=== PATIENT | male | born 1985 | race Caucasian/White ===

== ENCOUNTER 2021-05-17 22:21 | Emergency (ER) | payer MEDICAID ==
[~2021-05-17] VITALS: Ht 175.3 cm; Wt 56.7 kg
[2021-05-17 22:51] LABS: BASOPHILS # (AUTO) 0.1 10^3/uL (0.0-0.1); BASOPHILS % (AUTO) 1 % (0-10); EOSINOPHILS # (AUTO) 0.3 10^3/uL (0.0-0.3); EOSINOPHILS % (AUTO) 5 % (0-10); HEMATOCRIT 51 % (40-54); HEMOGLOBIN 17.1 g/dL (13.3-17.7); LYMPHOCYTES # (AUTO) 3.4 10^3/uL (1.0-4.0); LYMPHOCYTES % (AUTO) 48 % (12-44); MEAN CORPUSCULAR HEMOGLOBIN 32 pg (25-34); MEAN CORPUSCULAR HGB CONC 34 g/dL (32-36); MEAN CORPUSCULAR VOLUME 97 fL (80-99); MEAN PLATELET VOLUME 9.5 fL (9.0-12.2); MONOCYTES # (AUTO) 0.4 10^3/uL (0.0-1.0); MONOCYTES % (AUTO) 6 % (0-12); NEUTROPHILS # (AUTO) 2.8 10^3/uL (1.8-7.8); NEUTROPHILS % (AUTO) 40 % (42-75); PLATELET COUNT 284 10^3/uL (130-400)
[2021-05-17] MEDS ORDERED: FAMOTIDINE 20MG/2ML IV (PEPCID) IVP ONE (23:15)
[2021-05-17] MEDS ORDERED: PANTOPRAZOLE 40 MG (PROTONIX) VIAL IV ONE (23:15)
[2021-05-17 23:29] LABS: ALANINE AMINOTRANSFERASE 15 U/L (0-55); ALBUMIN 4.6 GM/DL (3.2-4.5); ALKALINE PHOSPHATASE 66 U/L (40-136); BILIRUBIN,TOTAL 0.3 MG/DL (0.1-1.0); BUN/CREATININE RATIO 6; CALCIUM 9.3 MG/DL (8.5-10.1); CARBON DIOXIDE 23 MMOL/L (21-32); CHLORIDE 106 MMOL/L (98-107); CREATININE SERUM 1.04 MG/DL (0.60-1.30); GFR ESTIMATED 96; GLUCOSE 95 MG/DL (70-105); POTASSIUM 4.2 MMOL/L (3.6-5.0); SODIUM 144 MMOL/L (135-145); TOTAL PROTEIN 7.7 GM/DL (6.4-8.2)
[2021-05-17 23:30] LABS: LIPASE 41 U/L (8-78)
[2021-05-17 23:41] LABS: PROTHROMBIN TIME PATIENT 13.3 SEC (12.2-14.7)
[2021-05-18] MEDS ORDERED: SUCR1TAB36 PO (00:56)
[2021-05-18] MEDS ORDERED: PANT40TA2 PO (00:56)
[2021-05-18] MEDS ORDERED: FAMO-119 PO (00:56)
--- NOTE | 2021-05-18 00:58 | ED GI ---
General Chief Complaint: Abdominal/GI Problems Stated Complaint: VOMITING BLOOD/COUGH Nursing Triage Note: c/o vomitting x3 after drinking etoh today. reports blood clots in vomit. states recent exposure to covid, denies symptoms Source of Information: Patient Exam Limitations: No Limitations History of Present Illness Date Seen by Provider: May 17, 2021 Time Seen by Provider: 22:31 Initial Comments This 36-year-old gentleman presents to the emergency room with concerns about coughing up or regurgitating up clots of blood this morning. 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 He has not had fever, significant cough, or shortness of breath. He reports he recently went through a divorce and began drinking again after several months of abstinence. He has been drinking heavily for at least a month and drinks up to 1 L of hard alcohol a day. He denies any pain at this time. H margie does report a history of prior bleeding ulcers. He is not presently taking any antacid medications or Carafate. Allergies and Home Medications Allergies Coded Allergies: pineapple (Verified Allergy, Unknown, 05/17/21) Patient Home Medication List Home Medication List Reviewed: Yes Famotidine (Pepcid) 20 Mg Tablet, 20 MG PO BID Prescribed by: MYKE HEARN on 05/18/2155 Pantoprazole Sodium (Protonix) 40 Mg Tablet.dr, 40 MG PO DAILY Prescribed by: MYKE HEARN on 05/18/2155 Sucralfate (Carafate) 1 Gm Tablet, 1 GM PO QID Prescribed by: MYKE HEARN on 05/18/2155 Review of Systems Review of Systems Constitutional: no symptoms reported EENTM: No Symptoms Reported Respiratory: No Symptoms Reported Cardiovascular: No Symptoms Reported Gastrointestinal: See HPI Genitourinary: No Symptoms Reported Musculoskeletal: no symptoms reported Skin: no symptoms reported Psychiatric/Neurological: No Symptoms Reported Endocrine: No Symptoms Reported Hematologic/Lymphatic: See HPI Past Dgevggs-Kjuuws-Wlxzbm Hx Patient Social History Tobacco Use?: Yes Tobacco type used: Cigarettes Substance use?: Yes Substance type: Marijuana Alcohol Use?: Yes Alcohol type: Hard Liquor Alcohol Frequency: Daily Pt feels they are or have been: No Past Medical History Surgery/Hospitalization HX: denies Surgeries: No Respiratory: No Cardiac: No Neurological: No Genitourinary: No Gastrointestinal: Yes Ulcer Musculoskeletal: No Endocrine: No HEENT: No Cancer: No Psychosocial: Yes (Alcohol dependence) Physical Exam Vital Signs Vital Signs - First Documented 05/17/21 22:31 Temp 36.1 Pulse 89 Resp 16 B/P (MAP) 130/92 (105) Pulse Ox 97 O2 Delivery Room Air Capillary Refill : Less Than 3 Seconds Height/Weight/BMI Height: '" Weight: lbs. oz. 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, no motor/sensory deficits, alert, normal mood/affect, oriented x 3 Skin: normal color, warm/dry Progress/Results/Core Measures Results/Orders Lab Results Laboratory Tests Test 05/17/21 22:38 05/17/21 23:38 05/18/21 22:38 Range/Units White Blood Count 7.0 4.3-11.0 10^3/uL Red Blood Count 5.27 4.30-5.52 10^6/uL Hemoglobin 17.1 13.3-17.7 g/dL Hematocrit 51 40-54 % Mean Corpuscular Volume 97 80-99 fL Mean Corpuscular Hemoglobin 32 25-34 pg Mean Corpuscular Hemoglobin Concent 34 32-36 g/dL Red Cell Distribution Width 14.2 10.0-14.5 % Platelet Count 284 130-400 10^3/uL Mean Platelet Volume 9.5 9.0-12.2 fL Immature Granulocyte % (Auto) 0 % Neutrophils (%) (Auto) 40 L 42-75 % Lymphocytes (%) (Auto) 48 H 12-44 % Monocytes (%) (Auto) 6 0-12 % Eosinophils (%) (Auto) 5 0-10 % Basophils (%) (Auto) 1 0-10 % Neutrophils # (Auto) 2.8 1.8-7.8 10^3/uL Lymphocytes # (Auto) 3.4 1.0-4.0 10^3/uL Monocytes # (Auto) 0.4 0.0-1.0 10^3/uL Eosinophils # (Auto) 0.3 0.0-0.3 10^3/uL Basophils # (Auto) 0.1 0.0-0.1 10^3/uL Immature Granulocyte # (Auto) 0.0 0.0-0.1 10^3/uL Prothrombin Time 13.3 12.2-14.7 SEC INR Comment 1.0 0.8-1.4 Activated Partial Thromboplast Time 26 24-35 SEC Sodium Level 144 135-145 MMOL/L Potassium Level 4.2 3.6-5.0 MMOL/L Chloride Level 106 98-107 MMOL/L Carbon Dioxide Level 23 21-32 MMOL/L Anion Gap 15 H 5-14 MMOL/L Blood Urea Nitrogen 6 L 7-18 MG/DL Creatinine 1.04 0.60-1.30 MG/DL Estimat Glomerular Filtration Rate 96 BUN/Creatinine Ratio 6 Glucose Level 95 70-105 MG/DL Calcium Level 9.3 8.5-10.1 MG/DL Corrected Calcium 8.5-10.1 MG/DL Total Bilirubin 0.3 0.1-1.0 MG/DL Aspartate Amino Transf (AST/SGOT) 16 5-34 U/L Alanine Aminotransferase (ALT/SGPT) 15 0-55 U/L Alkaline Phosphatase 66 40-136 U/L Total Protein 7.7 6.4-8.2 GM/DL Albumin 4.6 H 3.2-4.5 GM/DL Lipase 41 8-78 U/L Serum Alcohol 188 H <10 MG/DL Influenza Type A Antigen NEGATIVE NEGATIVE Influenza Type B Antigen NEGATIVE NEGATIVE SARS-CoV-2 RNA (RT-PCR) Not Detected Negative Coronavirus (COVID-19)(PCR) Negative Negative My Orders Orders - MYKE VARGHESE MD Comprehensive Metabolic Panel (05/17/21 22:31) Protime With Inr (05/17/21 22:31) Partial Thromboplastin Time (05/17/21 22:31) Ed Iv/Invasive Line Start (05/17/21 22:31) Cbc With Automated Diff (05/17/21 22:31) Pantoprazole Injection (Protonix Injecti (05/17/21 23:15) Famotidine Injection (Pepcid Injection) (05/17/21 23:15) Alcohol (05/17/21 23:05) Lipase (05/17/21 23:05) Covid 19 Inhouse Test (05/17/21 23:05) Influenza A & B Antigens (05/17/21 23:05) Chest 1 View, Ap/Pa Only (05/18/21 00:01) Coronavirus Sars-Cov-2 So 2018 (05/18/21 22:38) Medications Given in ED Vital Signs/I&O 05/17/21 05/18/21 22:31 01:04 Temp 36.1 36.3 Pulse 89 86 Resp 16 18 B/P (MAP) 130/92 (105) 104/93 Pulse Ox 97 97 O2 Delivery Room Air Room Air Blood Pressure Mean: 105 Progress Progress Note : Progress Note Work-up was relatively unremarkable except for blood alcohol level. He was treated with high-dose Pepcid and Protonix. Patient was urged to taper off alcohol as soon as possible to avoid further gastrointestinal damage. He was also advised to see a surgeon as soon as possible for endoscopy. See discharge instructions for further discussion. He is open to getting assistance with his alcohol dependence and would like to seek help from [facility]. Diagnostic Imaging Diagonstic Imaging: Xray Plain Films/CT/US/NM/MRI: chest Comments NAME: FELISHA HOLLEY MED REC#: [id number] PT STATUS: DEP ER : 1985 PHYSICIAN: MYKE VARGHESE MD ADMIT DATE: 05/17/21/ER Signed Date of Exam:05/18/21 CHEST 1 VIEW, AP/PA ONLY INDICATION: Cough and congestion Portable chest 12:16 AM Heart size and pulmonary vascularity are normal. Lungs are clear. There are no effusions or pneumothoraces. IMPRESSION: Negative chest Dictated by: Dictated on workstation # [id number] Dict: 05/18/21 0651 Trans: 05/18/21751 CVB [id number] Interpreted by: MAX TUCKER MD Electronically signed by: MAX TUCKER MD 05/18/21 0752 Departure Impression Primary Impression: Hematemesis Qualified Codes: K92.0 - Hematemesis Additional Impression: Alcohol dependence Qualified Codes: F10.29 - Alcohol dependence with unspecified alcohol- induced disorder Disposition: 01 HOME, SELF-CARE Condition: Improved Departure-Patient Inst. Decision time for Depature: 00:52 Referrals: AMADOU BONILLA BRETT D DO KIDO, TAKAAKI MD NO,LOCAL PHYSICIAN (PCP) Primary Care Physician Patient Instructions: ALCOHOL AND SUBSTANCE ABUSE, Gastrointestinal Bleeding Add. Discharge Instructions: Start the medications as prescribed and follow-up with a primary care provider soon as possible. You may also follow-up directly with a surgeon to pursue endoscopy (scoping of your stomach and esophagus). A list of surgeons is provided below. Gradually taper down on your alcohol consumption. Decreasing the quantity of alcohol in a controlled fashion by about 10% every other day would be an example of an acceptable taper. Avoid very rapid or abrupt cessation of alcohol as this may cause life-threatening withdraw or seizures. Return to the ER if you have worsening of condition or persistent vomiting of blood. Establish with a primary care provider soon as possible. Seek assistance with alcohol dependence. The [facility] office number is . Other resources are also listed below. Call with questions or concerns. All discharge instructions reviewed with patient and/or family. Voiced understanding. Scripts Sucralfate (Carafate) 1 Gm Tablet 1 GM PO QID, #120 TAB Crush and mix with 5-10 mL water to make a slurry. Take 30 minutes before meals and bedtime. Prov: MYKE VARGHESE MD 05/18/21 Pantoprazole Sodium (Protonix) 40 Mg Tablet.dr 40 MG PO DAILY, #30 TAB Prov: MYKE VARGHESE MD 05/18/21 Famotidine (Pepcid) 20 Mg Tablet 20 MG PO BID, #60 TAB Prov: MYKE VARGHESE MD 05/18/21 MYKE VARGHESE MD May 18, 2021 00:58
[2021-05-18 01:04] VITALS: BP 104/93
--- NOTE | 2021-05-18 06:54 | Diagnostic Imaging Report ---
INDICATION: Cough and congestion Portable chest 12:16 AM Heart size and pulmonary vascularity are normal. Lungs are clear. There are no effusions or pneumothoraces. IMPRESSION: Negative chest Dictated by: Dictated on workstation # [id number]
== END 2021-05-18 01:07 | disposition home or self-care (01) ==
LOC: ER 22:28
DX: K92.0 Hematemesis (principal); F10.20 Alcohol dependence, uncomplicated; Z20.822 Contact with and (suspected) exposure to COVID-19; Z72.0 Tobacco use
CPT/HCPCS: 71045; 80053; 83690; 85025; 85610; 85730; 87635; 87636; 87804; 99284; G0480; 36415; 80320

== ENCOUNTER 2021-08-07 02:06 | Emergency (ER) | payer MEDICAID ==
[~2021-08-07] VITALS: Ht 175.2 cm; Wt 60.3 kg
[~2021-08-07 02:06] MED LIST: FAMO-119 PO; PANT40TA2 PO; SUCR1TAB36 PO
[2021-08-07 02:12] VITALS: BP 122/77
[2021-08-07] MEDS ORDERED: ACYCLOVIR 400 MG TABLET (ZOVIRAX) PO STA (02:34)
--- NOTE | 2021-08-07 02:40 | ED Integumentary General ---
General Chief Complaint: Skin/Wound Problems Stated Complaint: RASH,BURNING Source: patient Exam Limitations: no limitations History of Present Illness Date Seen by Provider: Aug 07, 2021 Time Seen by Provider: 02:25 Initial Comments Patient is a 36-year-old healthy male who presents to the emergency department today with a chief complaint of rash over the left posterior deltoid, chest wall and upper inner arm. Onset of rash was about 3 days ago. He complains of itching and burning. He states the rash first appeared over the anterior axilla/inferior deltoid. It has spread and patches. He does not recall any sick contacts. He has never had anything like this before. Denies any fevers, chills, shortness of breath or URI symptoms. He is not diabetic. Has not put anything on the rash. He initially thought it was ringworm but now is concerned for shingles. All other review of systems reviewed and negative except as stated. Timing/Duration: other (3d) Severity: mild Location: extremities Possible Cause: no cause identified Associated Symptoms: blisters, change in skin texture, other ("muscle pain") Allergies and Home Medications Allergies Coded Allergies: pineapple (Verified Allergy, Unknown, 05/17/21) Patient Home Medication List Home Medication List Reviewed: Yes Acyclovir (Acyclovir) 800 Mg Tablet, 800 MG PO UD Prescribed by: QI PIERCE on 08/07/21 0241 Famotidine (Pepcid) 20 Mg Tablet, 20 MG PO BID Prescribed by: MYKE HEARN on 05/18/2155 Pantoprazole Sodium (Protonix) 40 Mg Tablet.dr, 40 MG PO DAILY Prescribed by: MYKE HEARN on 05/18/21 005 Sucralfate (Carafate) 1 Gm Tablet, 1 GM PO QID Prescribed by: MYKE HEARN on 05/18/2155 Review of Systems Review of Systems Constitutional: see HPI EENTM: no symptoms reported Respiratory: no symptoms reported Cardiovascular: no symptoms reported Gastrointestinal: no symptoms reported Musculoskeletal: muscle pain Skin: pruritus, rash All Other Systems Reviewed Negative Unless Noted: Yes Past Qkzmtwb-Nigsdo-Toarlz Hx Past Medical History Surgery/Hospitalization HX: denies Surgeries: No Respiratory: No Cardiac: No Neurological: No Genitourinary: No Gastrointestinal: Yes Ulcer Musculoskeletal: No Endocrine: No HEENT: No Cancer: No Psychosocial: Yes (Alcohol dependence) Physical Exam Vital Signs Vital Signs - First Documented 08/07/21 02:12 Temp 36.8 Pulse 79 Resp 16 B/P (MAP) 122/77 (92) Pulse Ox 99 O2 Delivery Room Air Capillary Refill : General Appearance: WD/WN, no apparent distress HEENT: PERRL/EOMI Neck: full range of motion, normal inspection Cardiovascular: regular rate, rhythm Respiratory: lungs clear, normal breath sounds, no respiratory distress, no accessory muscle use Extremities: normal range of motion, non-tender, normal inspection Neurologic/Psychiatric: alert, normal mood/affect, oriented x 3 Skin: normal color, warm/dry, rash (Patchy erythematous rash with raised papules in the center of 3 separate patches, various stages of healing. The one on the inner upper arm appears newest. There are a few vesicles visible. Rash seems to follow a dermatome) Skin Problem Location: upper extremities (Left upper) Skin Problem Character: erythema, papules, rash, tenderness, vesicular, warm Progress/Results/Core Measures Results/Orders My Orders Orders - QI PIERCE MD Acyclovir Capsule/Tablet (Zovirax Caps (08/07/21 02:34) Vital Signs/I&O 08/07/21 02:12 Temp 36.8 Pulse 79 Resp 16 B/P (MAP) 122/77 (92) Pulse Ox 99 O2 Delivery Room Air Departure Impression Primary Impression: Herpes zoster Qualified Codes: B02.9 - Zoster without complications Disposition: 01 HOME, SELF-CARE Condition: Stable Departure-Patient Inst. Decision time for Depature: 02:38 Referrals: [facility] [place] NO,LOCAL PHYSICIAN (PCP) Primary Care Physician Patient Instructions: Shingles (DC) Add. Discharge Instructions: Keep the wounds clean dry and covered especially at work. Take the acyclovir, 800 mg 5 times daily for the next 7 days to help heal the rash and decrease shedding of the virus. You can take 600mg Ibuprofen (3 200 mg tablets) every 6 hours with food as needed for pain. If you develop worsening rash especially with fever, worsening redness or swelling please come back to the emergency room for reevaluation. You should note significant improvement after 2-3 days of treatment. Please complete the entire 7-day course. If you have any burning discomfort once the rashy patches heal you can use [id number] lidocaine patches over the area of discomfort. Please follow-up with a primary care doctor for future wellness checks. Scripts Acyclovir (Acyclovir) 800 Mg Tablet 800 MG PO UD for 7 Days, #35 TAB Take 800mg tablets 5 times a day for 7 days Prov: QI PIERCE MD 08/07/21 QI PIERCE MD Aug 07, 2021 02:40
[2021-08-07] MEDS ORDERED: ACYC-112 PO (02:41)
== END 2021-08-07 03:01 | disposition home or self-care (01) ==
LOC: EDUNIT# 02:06 → ER 02:09
DX: B02.9 Zoster without complications (principal)
CPT/HCPCS: 99283

== ENCOUNTER 2021-08-26 22:30 | Emergency (ER) | payer MEDICAID ==
[~2021-08-26] VITALS: Ht 175.2 cm; Wt 63.7 kg
[~2021-08-26 22:30] MED LIST changes: +ACYC-112 PO
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
[2021-08-27 00:52] VITALS: BP 106/57
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
--- NOTE | 2021-08-27 06:44 | Diagnostic Imaging Report ---
INDICATION: Right rib pain COMPARISON: 3 views the right ribs demonstrate no osseous lesion or fracture. There is no pneumothorax or effusion. IMPRESSION: Negative right ribs. Dictated by: Dictated on workstation # [id number]
== END 2021-08-27 00:51 | disposition home or self-care (01) ==
LOC: EDUNIT# 22:30 → ER 22:33
DX: S06.0X0A Concussion without loss of consciousness, initial encounter (principal); S20.211A Contusion of right front wall of thorax, initial encounter; M54.2 Cervicalgia; R40.2360 Coma scale, best motor response, obeys commands, unspecified time; R40.2250 Coma scale, best verbal response, oriented, unspecified time; R40.2140 Coma scale, eyes open, spontaneous, unspecified time; F17.210 Nicotine dependence, cigarettes, uncomplicated; Y00.XXXA Assault by blunt object, initial encounter
CPT/HCPCS: 70450; 70486; 71100; 72125